=== PATIENT | male | born 1940 | race Caucasian/White ===

== ENCOUNTER 2021-08-24 12:08 | Inpatient (IN) | payer MEDICARE, OTHER, SELFPAY ==
--- NOTE | ~2021-08-24 | CT_ITS ---
EXAMINATION: CT brain wo con INDICATION: Head injury COMPARISON: None TECHNIQUE: Standard unenhanced head CT. The dose-length product (DLP) was 681.00 mGy-cm. The mA was a djusted according to patient size. Iterative reconstruction technique was employed. FINDINGS: There is no acute intraparenchymal hemorrhage. No evidence of mass lesion. No evidence of a cute infarction. There is moderate periventricular and subcortical hypodensity probably related to sm all vessel ischemic disease. There is moderate prominence of the sulci and ventricles related to cere bral atrophy. Intracranial calcified cerebral atherosclerosis is noted. There are no extra-axial levi ections. There is no mass effect or midline shift. Changes in right globe are likely from ocular lens surgery. The visualized sinuses and mastoid air cells are well aerated. IMPRESSION: 1. No acute intracranial abnormality. 2. Age related findings. Reviewed, dictated and finalized at location A.
--- NOTE | ~2021-08-24 | US_ITS ---
EXAMINATION: US renal BI DATE: 08/27/2021 08:07 INDICATION: Gross hematuria. TECHNIQUE: Multiple ultrasound grayscale images of the kidneys were obtained. COMPARISON: None. FINDINGS: The right kidney measures 11.7 x 5.9 x 6.0 cm. The left kidney measures 13.9 x 6.2 x 7.2 cm. The kidn eys demonstrate normal parenchymal echogenicity. There are cysts in the kidneys measuring up to 4.4 c m on the left. There is mild left hydronephrosis. The bladder is normal. The prostate is severely enl arged. IMPRESSION: 1. Mild left hydronephrosis. 2. Severely enlarged prostate. Reviewed, dictated and finalized at location A.
--- NOTE | ~2021-08-24 | XR_ITS ---
EXAMINATION: XR chest 2V DATE: 08/24/2021 13:17 INDICATION: Chest pain after fall TECHNIQUE: AP and lateral views of the chest are obtained. COMPARISON: None available FINDINGS: There is mild atelectasis of the lung bases. There is no pleural effusion or pneumothorax. The cardiomediastinal silhouette is normal. There is mild thoracic spondylosis. IMPRESSION: 1. No acute cardiopulmonary abnormality. Reviewed, dictated and finalized at location A.
[2021-08-24 12:12] VITALS: BP 134/75; PULSE 82; RESP 20; TEMP 36.4; O2SAT 95
--- NOTE | 2021-08-24 12:16 | ECG_ITS ---
Measurements Intervals [place] Rate: 85 P: -53 AZ: 119 QRS: 47 QRSD: 85 T: 61 QT: 334 QTc: 399 Interpretive Statements SINUS RHYTHM WITH SHORT [place] INTERVAL WITH OCCASIONAL VENTRICULAR PREMATURE COMPLEXES POSSIBLE RIGHT VENTRICULAR CONDUCTION DELAY [RSR (QR) IN V1/V2] COMPARED TO ECG 08/24/2021 12:16:46 NO SIGNIFICANT CHANGES Electronically Signed On 08-25-2021 19:17:02 CDT by Lucy Huff M.D.
[2021-08-24 12:38] LABS: Basophils Percent Auto 0.4 % (0.2-1.2); Eosinophils Absolute Auto 0.1 K/mm3 (0-0.3); Eosinophils Percent Auto 0.7 % (0-4.4); Hematocrit 39.6 % (42.0-52.0); Hemoglobin 13.8 g/dL (14.0-18.0); Immature Granulocyte Absolute 0.04 K/mm3 (0.00-0.031); Immature Granulocyte Percent A 0.5 % (0-0.5); Lymphocytes Absolute Auto 2.73 K/mm3 (0.9-3.2); Lymphocytes Percent Auto 35.7 % (18.3-44.2); Mean Corpuscular HGB Conc 34.8 g/dl (32-36); Mean Corpuscular Hemoglobin 31.6 pg (26-34); Mean Corpuscular Volume 90.6 fl (80-100); Mean Platelet Volume 9.9 fl (7.4-10.4); Monocytes Absolute Auto 0.7 K/mm3 (0.1-0.6); Monocytes Percent Auto 8.5 % (2.6-8.5); Neutrophils Absolute Auto 4.1 K/mm3 (1.3-6.7); Neutrophils Percent Auto 54.2 % (45.5-73.1); Platelet Count Result 231 k/mm3 (150-375); Red Blood Count 4.37 M/mm3 (4.6-6.20); White Blood Count 7.6 K/mm3 (4.5-10.0)
[2021-08-24] MEDS: TETANUS,DIPHTHERIA,AC PERTUSSIS ADULT (0.5 ML) BOOSTRIX IM (12:38)
[2021-08-24 12:52] LABS: Anion Gap 3 mmol/L (8-16); Blood Urea Nitrogen 20 mg/dL (9-20); Calcium 8.9 mg/dL (8.4-10.2); Carbon Dioxide 29 mmol/L (22-30); Chloride 107 mmol/L (98-107); Estimated CRCL calculation 62 ml/min; Estimated Glomerular Filt Rate > 60; Glucose 108 mg/dL (65-110); Potassium 3.1 mmol/L (3.4-5.0); Sodium 139 mmol/L (137-145)
--- NOTE | 2021-08-24 13:14 | PC.NURSE ---
Multiple tries to collect urine, pt not able to urinate at this time.
[2021-08-24 13:23] VITALS: RESP 18; O2SAT 98
[2021-08-24 13:50] VITALS: BP 152/80; PULSE 61; RESP 16; O2SAT 95
[2021-08-24 13:50] LABS: Appearance Urine Clear (Clear); Bilirubin Urine 1+ (Negative); Blood Urine Negative (Negative); Color Urine Yellow (Yellow); Glucose Urine UA Negative (Negative); Ketones Urine Negative (Negative); Leukocyte Esterase Ur Negative LEU/UL (Negative); Nitrate Urine Negative (Negative); Protein Urine 1+ mg/dL (Negative); Specific Grav Ur >= 1.030 (1.001-1.035); pH Urine 5.5 (5.0-9.0)
[2021-08-24 13:55] LABS: Mucus Urine Few /lpf; RBC Urine 0-2 /hpf (0-2); Squamous Epithelial Cell Urine Rare /hpf (Few); WBC Urine 0-3 /hpf
[2021-08-24 13:56] LABS: Add Urine Microscopic? YES
--- NOTE | 2021-08-24 14:02 | PC.NURSE ---
This RN received call from pt's neighbor and property maintenance supervisor in [place], Janina Del Rio. She reports she is NOT related to pt and has NO legal authority, and remainder of pt's family is in [place]. This RN did not share info with person, but she reports she will attempt to contact pt's family.
[2021-08-24 14:27] LABS: SARS-CoV-2 RNA PCR Negative
--- NOTE | 2021-08-24 14:27 | PC.NURSE ---
spoke to pt nephew (medical POA) Jean Paul Ng, said he will try get here as soon as he can to pick pt up.
--- NOTE | 2021-08-24 15:12 | ECG_ITS ---
Measurements Intervals [place] Rate: 84 P: 33 AZ: 179 QRS: -25 QRSD: 104 T: 41 QT: 372 QTc: 441 Interpretive Statements SINUS RHYTHM WITH OCCASIONAL SUPRAVENTRICULAR PREMATURE COMPLEXES BORDERLINE LEFT AXIS DEVIATION [QRS AXIS < -20] NONSPECIFIC T-WAVE ABNORMALITY NO PREVIOUS ECG AVAILABLE FOR COMPARISON Electronically Signed On 08-25-2021 19:16:50 CDT by Lucy Huff M.D.
--- NOTE | 2021-08-24 16:12 | PC.NURSE ---
Per ED JANENE Siddiqui, pt's nephew will catch plane from [place], and we can expect him to arrive at [facility] tomorrow (Thursday) 08/25/21. Nephew's reports he is also pt's POA. Contact info as follows: Hernandez Reaves: [phone].
--- NOTE | 2021-08-24 16:30 | PM.IMHP ---
H&P: HPI History of Present Illness Date/Time: 08/24/21 16:30 Chief Complaint: Ground level fall. Narrative: This is an 81-year-old male who presented to the emergency department via EMS for evaluation after a ground level fall. He is a very poor historian and seems to suffer from significant short-term memory loss and as such all of the following history is via a review of his electronic medical record. The patient lives in [place], [place] and he reports passing through the area on his way to [place], [place] where he also has a home. It is my understanding that the police pulled him over last night for driving erratically and he was taken to shelter overnight as he was apparently combative with the officers. He was released this morning and as he was walking out of the building he tripped on a rock and fell onto his right side. EMS was summoned and he was brought to the ER as he was quite confused. Workup in the ER was relatively unremarkable and a laceration on his right holiness was sutured. We were able to get a hold of his nephew Greciay he is going to be coming tomorrow to cotton picking machine operator the patient. He is being admitted overnight for closer monitoring and for evaluation of his altered mental status. At the time my evaluation he is a bit agitated and he wants to know where his truck is so he can get back on the road [place]. He also reports being tired as he has not slept much since he has been driving the last several days, reportedly pulling over now and then to have a brief nap in his truck before motoring on. He has no specific complaints. Review of Systems Review of Systems: Twelve systems were reviewed. He has perhaps some mild discomfort at the side of the laceration near his right holiness. He denies overt headache. No fever, chills, or sweats. He denies recent cold and flu symptoms. No chest pain or shortness of breath. No nausea, vomiting, or diarrhea. He reports being hungry at this time. He is aware that he is confused and tells me that he was just a bit discombobulated from being in a new setting and in shelter overnight. He denies a diagnosis of dementia. Except as documented, all other systems were reviewed and are negative. [facility] Past Medical History Medical History (Updated 08/24/21 @ 23:53 by Yulissa Blackburn PA-C) Medical history unknown Surgical History Surgical History (Updated 08/24/21 @ 16:54 by Yulissa Blackburn PA-C) History of tonsillectomy Family History Family History Other Unknown family medical history Social History Social History (Updated 08/24/21 @ 23:51 by Yulissa Blackburn PA-C) Social History: [id number]: Jean Paul Ng, nephew. Code status: Full code. Smoking status: Former smoker Alcohol intake: never Substance use: never Substance use type: unknown Additional living arrangements comments: The patient lives in [place], [place]. He has 3 children. Additional occupation/education comments: Retired electrician apprentice. Was in the [employer], [employer]. Spiritual care concerns: No Meds Home Medications and Allergies Allergies Allergy/AdvReac Type Severity Reaction Status Date / Time No Known Allergies Allergy Verified 08/24/21 12:26 Vital Signs Vital Signs - 24 hr 08/24/21 12:12 08/24/21 13:23 08/24/21 13:50 Temperature 97.5 F L Pulse Rate 82 61 Respiratory Rate 20 18 16 Blood Pressure 134/75 152/80 H Pulse Oximetry 95 98 95 Oxygen Delivery Room Air Exam Narrative: General: Well developed, well nourished male supine in bed. Weight: 83 kg. HEENT: Wearing a ball cap. There is an abrasion on the right holiness. PERRL, EOMI. Sclerae anicteric. Tacky mucus membranes. Some missing teeth and dental caries. Neck: Supple. No obvious bruits but he talks through the exam. Respiratory: Lungs are clear to auscultation bilaterally. Cardiovascular: Regular rate and rhythm with S1-S2. 2/6 systolic
--- NOTE | 2021-08-24 16:31 | ED.GENADULT ---
HPI - General Adult General Chief complaint: Fall Stated complaint: GLF outside head lac Time Seen by Provider: 08/24/21 12:17 History of Present Illness HPI narrative: Patient is an 81-year-old male who presents the ER after a fall in [facility]. He apparently tripped over a curb. It was witnessed by onlookers. No loss of consciousness. Patient has a small laceration lateral to the right eyebrow. Unfortunately the story deepens and it apparently patient has been on the road for 2 to 3 days. He is originally from [facility]. He apparently was pulled over for swerving and then was arrested for resisting arrest. Patient stayed the night in [facility] longterm. He was then released this morning and his car was impounded. Patient is only alert to self. He has no idea what state or city he is currently in. He has no concept of the date. He reports he is on his way to [place]. We are able to get phone numbers of a delivery technician from his home up in [place]. Additionally we were able to talk to his nephew who is his POA, he did not know he was gone. Patient has no other complaints at this time. Related Data Allergies Allergy/AdvReac Type Severity Reaction Status Date / Time No Known Allergies Allergy Verified 08/24/21 12:26 Review of Systems Review of Systems: ROS unobtainable: Yes unobtainable due to mental status PMFSH Past Medical History Medical History (Updated 08/24/21 @ 17:47 by Omega Hall MD) Healthy adult male Surgical History Surgical History (Updated 08/24/21 @ 16:54 by Yulissa Blackburn PA-C) History of tonsillectomy Social History Social History (Updated 08/24/21 @ 17:47 by Omega Hall MD) Smoking status: Never smoker Exam Narrative: GENERAL: Well-appearing, well-nourished, and in no acute distress. HEAD: Normocephalic, 1.5 cm V-shaped laceration lateral to the right eyebrow. EYES: PERRL and EOMI. ENT: Mucous membranes moist. CHEST: Clear to auscultation. No respiratory distress. HEART: Regular rate and rhythm. Normal peripheral pulses. ABDOMEN: Soft, nontender, nondistended. EXTREMITIES: Normal range of motion. No edema. SKIN: Warm, dry, no rash. NEURO: No focal deficits. Alert and oriented x1. PSYCH: Normal mood and affect. Course Course Emergency Course: Will admit to the hospitalist service so family can come get the patient. Vital Signs Vital signs: Vital Signs Temperature 97.5 F L 08/24/21 12:12 Pulse Rate 82 08/24/21 12:12 Respiratory Rate 20 08/24/21 12:12 Blood Pressure 134/75 08/24/21 12:12 Pulse Oximetry 95 08/24/21 12:12 Oxygen Delivery Room Air 08/24/21 12:12 Temperature 97.5 F L 08/24/21 12:12 Pulse Rate 61 08/24/21 13:50 Respiratory Rate 16 08/24/21 13:50 Blood Pressure 152/80 H 08/24/21 13:50 Pulse Oximetry 95 08/24/21 13:50 Oxygen Delivery Room Air 08/24/21 12:12 Procedures Laceration Laceration 1: Date: 08/24/21 Time: 17:20 Site: face Side (If applicable): right Size (cm): 1.5 Description: flap Depth: simple, single layer Local Anesthetic: lidocaine 1% and with epi Amount of anesthesia used (mL): 1 Pre-repair: irrigated ====== Skin Level ====== Skin layer closed with: nylon Size (cm): 5-0 Number of sutures: 3 Technique: simple, interrupted ====== Subcutaneous Layer ====== ====== Muscle Layer ====== ====== Tendon Layer ====== Medical Decision Making Vital Signs Vital Signs: Vital Signs Temperature 97.5 F L 08/24/21 12:12 Pulse Rate 82 08/24/21 12:12 Respiratory Rate 20 08/24/21 12:12 Blood Pressure 134/75 08/24/21 12:12 Pulse Oximetry 95 08/24/21 12:12 Oxygen Delivery Room Air 08/24/21 12:12 Temperature 97.5 F L 08/24/21 12:12 Pulse Rate 61 08/24/21 13:50 Respiratory Rate 16 08/24/21 13:50 Blood Pressure 152/80 H 08/24/21 13
[2021-08-24] MEDS: LORazepam INJ (*CRX) 2 MG/ML VIAL 1 MG IV PUSH (17:10)
--- NOTE | 2021-08-24 17:42 | PC.NURSE ---
BROOKSAR faxed to floor @ [phone] by this RN.
--- NOTE | 2021-08-24 18:16 | PC.NURSE ---
Admission Note: The patient,Andrzej Esteves,81 y/o, was given written information regarding hospital policies, unit procedures and contact persons.
[2021-08-24 18:30] VITALS: BP 163/78; PULSE 88; RESP 16; TEMP 36.9; O2SAT 98
[2021-08-24] MEDS: WATER, STERILE FOR INJECTION 10 ML VIAL XX (19:53)
[2021-08-24] MEDS: OLANZapine 10 MG INJ VIAL 5 MG IM (19:53)
[2021-08-24 19:55] VITALS: BMI 27.2
[2021-08-24 20:05] VITALS: BP 143/66; PULSE 76; RESP 18; TEMP 37.2; O2SAT 96
[2021-08-24] MEDS: POTASSIUM CHLORIDE 20 MEQ TABLET PO (21:53)
[2021-08-24 22:21] VITALS: O2SAT 95
[2021-08-25] MEDS: HALOPERIDOL LACTATE 5 MG/ML VIAL IM (01:02)
[2021-08-25] MEDS: LORazepam INJ (*CRX) 2 MG/ML VIAL 1 MG IM (01:03)
[2021-08-25 01:19] LABS: Barbiturate Screen Urine Negative (Negative); Benzodiazepines Screen Urine Negative (Negative)
[2021-08-25 01:21] LABS: Amphetamine Screen Urine Negative (Negative); Cannabinoid Screen Urine Negative (Negative); Cocaine Screen Urine Negative (Negative); Methadone Screen Urine Negative (Negative); Opiate Screen Urine Negative (Negative); Phencyclidine Screen Urine Negative (Negative)
[2021-08-25 09:45] VITALS: RESP 18; O2SAT 95
--- NOTE | 2021-08-25 09:45 | PM.DS ---
DS: Admitting Diagnosis Discharge Date 08/25/2021 Admitting Diagnosis ground level fall requiring sutures altered mental status, dementia DS: Discharge Diagnosis Discharge Diagnosis (1) Fall from ground level: Code(s): W18.30XA - Fall on same level, unspecified, initial encounter Status: Acute Assessment and Plan: Patient sustained a ground level fall, reportedly tripping on a rock. Brain CT was unremarkable. Initiate fall precautions. PT/OT consulted. (2) Laceration of scientology: Code(s): S01.81XA - Laceration without foreign body of other part of head, initial encounter Status: Acute Assessment and Plan: Sutured in the emergency department. Local wound care. (3) Confusion: Code(s): R41.0 - Disorientation, unspecified Status: Acute Assessment and Plan: I suspect this is not new but may be worse due to long distance travel and lack of sleep. No evidence to suggest infection on labs. Initiate fall precautions. Neurologic checks q.4 hours. Devonte Reaves (ANNALEE) is on his way to get the patient. (4) Hypokalemia: Code(s): E87.6 - Hypokalemia Status: Acute Assessment and Plan: Potassium will be replaced and monitored. DS: Summary Hospital Course Reason for hospitalization: Acute mental status changes laceration to head Hospital Course: patient is an 81-year-old male with past medical history that is unknown due to the patient's uncooperative state. however in the emergency department the patient was brought via ambulance for evaluation after ground level fall after being released from the [facility] where he stayed overnight as apparently he became combative with officers after being pulled over. Patient is a very poor historian and appears to have some short-term memory loss. According to records the patient lives in [place], [place] and he reports passing through the area on his way to [place], [place] where he also has a home.?He was released this morning and as he was walking out of the building he tripped on a rock and fell onto his right side. EMS was summoned and he was brought to the ER as he was quite confused. Workup in the ER was relatively unremarkable and a laceration on his right scientology was sutured. We were able to get a hold of his nephew Erik he is going to be coming tomorrow to pickling operator the patient. He is being admitted overnight for closer monitoring and for evaluation of his altered mental status. At the time my evaluation he is a bit agitated and he wants to know where his truck is so he can get back on the road [place]. He also reports being tired as he has not slept much since he has been driving the last several days, reportedly pulling over now and then to have a brief nap in his truck before motoring on. He has no specific complaints. no acute findings during this hospitalization. Patient will be discharged with family and his power of corporate associate attorney. Status at Discharge Cognitive/behavioral status at discharge: alert to self Functional status at discharge: uses cane/walker Time Spent with Patient Time attestation: Total time spent providing and/or coordinating discharge services: Time spent: Less than 30 minutes Exam Narrative: General: Well developed, well nourished male supine in bed. Weight: 83 kg. HEENT: Wearing a ball cap. There is an abrasion on the right scientology. PERRL, EOMI. Sclerae anicteric. Tacky mucus membranes. Some missing teeth and dental caries. Neck: Supple. No obvious bruits but he talks through the exam. Respiratory: Lungs are clear to auscultation bilaterally. Cardiovascular: Regular rate and rhythm with S1-S2. 2/6 systolic murmur at the upper sternal border. Gastrointestinal: Abdomen is soft, nontender, and nondistended with positive bowel sounds. Skin: Warm and dry. Skin tear dorsum left hand. Abrasion/laceration right scientology. Extremities: No cyanosis or clubbing. Bilateral per
--- NOTE | 2021-08-25 12:25 | PC.NURSE ---
Call from pt's ANNALEE Reaves from [place], he states he has a flight to come to [facility] to pick up driver pt, he and his step father are coming to pick pt up and take him back to [place], I asked him if he has been in contact with the police concerning location of pt's vehicle, he states he has contacted the [facility] police and has name and number of impound lot and will be able to contact them Thursday08/26/2021 a.m His flight is late Thursday and will not be able to pick up driver pt until Thursday, he has been in contact with Sarah at [facility] in the [facility] ph/ [phone] and has a meeting with her today to have pt placed there when they return, I reviewed with him pt's condition at this time
[2021-08-25 13:06] LABS: Hematocrit 39.7 % (42.0-52.0); Hemoglobin 13.7 g/dL (14.0-18.0); Mean Corpuscular HGB Conc 34.5 g/dl (32-36); Mean Corpuscular Hemoglobin 31.8 pg (26-34); Mean Corpuscular Volume 92.1 fl (80-100); Mean Platelet Volume 9.9 fl (7.4-10.4); Platelet Count Result 204 k/mm3 (150-375); Red Blood Count 4.31 M/mm3 (4.6-6.20); Red Cell Distribution Width 12.9 % (11.5-14.5)
[2021-08-25 13:23] LABS: Ammonia < 9 umol/L (9-30)
[2021-08-25 13:24] LABS: Alanine Aminotransferase 21 U/L (6-50); Albumin Level 3.5 g/dL (3.5-5.1); Alkaline Phosphatase 76 U/L (38-126); Anion Gap 2 mmol/L (8-16); Aspartate Amino Transferase 33 U/L (17-59); Bilirubin,Total 1.5 mg/dL (0.2-1.3); Blood Urea Nitrogen 13 mg/dL (9-20); Calcium 8.4 mg/dL (8.4-10.2); Carbon Dioxide 29 mmol/L (22-30); Chloride 109 mmol/L (98-107); Estimated CRCL calculation 62 ml/min; Estimated Glomerular Filt Rate > 60; Glucose 102 mg/dL (65-110); Magnesium 2.1 mg/dL (1.6-2.3); Potassium 3.1 mmol/L (3.4-5.0); Sodium 140 mmol/L (137-145)
[2021-08-25 14:00] VITALS: BP 140/72; PULSE 63; RESP 16; TEMP 36.6; O2SAT 98
--- NOTE | 2021-08-25 14:47 | PCCCNOTE ---
On 08/25/21, the student, [Suly Nath], provided care and completed [facility] documentation on this patient. I have reviewed the student's documentation and agree with the findings.
[2021-08-25 20:30] VITALS: BP 166/94; PULSE 96; RESP 20; TEMP 36.8; O2SAT 98
[2021-08-25] MEDS: ACETAMINOPHEN 325 MG TABLET 650 MG PO (20:31)
[2021-08-26 05:57] VITALS: BP 128/69; PULSE 60; RESP 16; TEMP 37.1; O2SAT 95
--- NOTE | 2021-08-26 08:26 | PCPTNOTE ---
Attempted to see patient for PT this A.M., per RN not to see patient right now due to patient sleeping at this time.
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
--- NOTE | 2021-08-26 12:46 | PC.NURSE ---
Pt continues to get out of chair and tugging on garcia cath. Garcia cath changed out due to not draining and bright red clots noted and unable to pass through cath tubing. Marina Solares FINANCIAL SUPERVISOR notified.
[2021-08-26 14:00] VITALS: BP 153/69; PULSE 85; RESP 16; TEMP 37.2; O2SAT 98
--- NOTE | 2021-08-26 15:11 | PC.NURSE ---
Marina oSlares BURR MILL OPERATOR notified of pt trying to pull cbi out and unhooking it while saline is spraying everywhere. Sitter at bedside and pt is still not cooperative.
[2021-08-26] MEDS: TAMSULOSIN HCL 0.4 MG CAPSULE PO (15:14)
[2021-08-26] MEDS: FINASTERIDE 5 MG TABLET PO (15:14)
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
--- NOTE | 2021-08-26 15:36 | PC.NURSE ---
Pt up in room walking around trying to put on clothese and says he is leaving. Pt has envelope with petty and credit cards. Encouraged pt let me count money and put in safe, pt refused
[2021-08-26] MEDS: OLANZapine 2.5 MG TABLET PO (15:40)
[2021-08-26 20:00] VITALS: BP 153/69; PULSE 85; RESP 16; TEMP 37.2; O2SAT 98
[2021-08-26 22:00] VITALS: BP 182/76; PULSE 91; RESP 18; TEMP 36.7; O2SAT 95
[2021-08-27 06:00] VITALS: BP 148/67; PULSE 69; RESP 16; TEMP 36.5; O2SAT 98
--- NOTE | 2021-08-27 08:47 | WPDUROPN2 ---
Progress Note: A&P Assessment and Plan (1) Retention of urine: Code(s): R33.9 - Retention of urine, unspecified Status: Acute Assessment and Plan: Patient continued to pull Moraes out. Nurse states patient has been voiding frequently. Will check bladder scan for residual. In addition will obtain renal ultrasound to evaluate upper tracts and see if any clots in the bladder. (2) Gross hematuria: Code(s): R31.0 - Gross hematuria Status: Acute Assessment and Plan: Urine is cleared per nurse. Will see what ultrasound shows. If no clot seen may hold off on cystoscopy at this time Subjective Subjective Date/Time Seen: 08/27/21 08:47 Principal diagnosis: Urinary retention and hematuria Interval history: Patient is resting comfortably at this time. Patient has dementia. Nurse states that he has been voiding frequently in his urine has cleared Review of Systems Review of Systems: All systems reviewed & are unremarkable except as noted in HPI and below Exam Const: General: comfortable ( sleeping at this time) Objective Data Vital Signs Vital Signs: Vital Signs - 24 hr 08/26/21 14:00 08/26/21 20:00 08/26/21 20:00 Temperature 37.2 C 37.2 C Pulse Rate 85 85 85 Respiratory Rate 16 16 16 Blood Pressure 153/69 H 153/69 H Pulse Oximetry 98 98 98 Oxygen Delivery Room Air 08/26/21 22:00 08/27/21 06:00 Temperature 36.7 C 36.5 C Pulse Rate 91 69 Respiratory Rate 18 16 Blood Pressure 182/76 H 148/67 H Pulse Oximetry 95 98 Oxygen Delivery Intake/Output Intake/Output: Intake & Output 08/24/21 08/25/21 08/26/21 08/27/21 23:59 23:59 23:59 23:59 Intake Total 150 1714 300 Output Total 1600 725 Balance -1450 989 300 Meds/Results Medications: Active Medications Generic Name Dose Route Start Last Admin Trade Name Freq PRN Reason Stop Dose Admin Acetaminophen 650 mg 08/24/21 16:36 08/25/21 20:31 Acetaminophen 325 Mg Tablet PO 650 mg Q4H PRN Administration Mild Pain (1-3) or Fever Finasteride 5 mg 08/26/21 14:45 08/26/21 15:14 Finasteride 5 Mg Tablet PO 5 mg QAM EDUARDO Administration Ondansetron HCl 4 mg 08/24/21 16:36 Ondansetron Inj 4 Mg/2 Ml Vial IV PUSH Q4H PRN Nausea Tamsulosin HCl 0.4 mg 08/26/21 14:45 08/26/21 15:14 Tamsulosin Hcl 0.4 Mg Capsule PO 0.4 mg QAM EDUARDO Administration Radiology Results: ITS Impressions Head CT 08/24/21 13:15 IMPRESSION: 1. No acute intracranial abnormality. 2. Age related findings. Chest X-Ray 08/24/21 13:26 IMPRESSION: 1. No acute cardiopulmonary abnormality. Quality VTE Prophylaxis VTE prophylaxis: mechanical ordered
[2021-08-27] MEDS: FINASTERIDE 5 MG TABLET PO (09:07)
[2021-08-27] MEDS: TAMSULOSIN HCL 0.4 MG CAPSULE PO (09:07)
--- NOTE | 2021-08-27 09:21 | PM.IMPN ---
Progress Note: A&P Assessment and Plan (1) Fall from ground level: Code(s): W18.30XA - Fall on same level, unspecified, initial encounter Status: Acute Assessment and Plan: Patient sustained a ground level fall, reportedly tripping on a rock. Brain CT was unremarkable. Initiate fall precautions. PT/OT consulted. (2) Laceration of tenriism: Code(s): S01.81XA - Laceration without foreign body of other part of head, initial encounter Status: Acute Assessment and Plan: Sutured in the emergency department. Local wound care. (3) Confusion: Code(s): R41.0 - Disorientation, unspecified Status: Acute Assessment and Plan: I suspect this is not new but may be worse due to long distance travel and lack of sleep. No evidence to suggest infection on labs. Initiate fall precautions. Neurologic checks q.4 hours. Devonte Jean Paul (ANNALEE) is on his way to get the patient. (4) Hypokalemia: Code(s): E87.6 - Hypokalemia Status: Acute Assessment and Plan: Potassium will be replaced and monitored. (5) Retention of urine: Code(s): R33.9 - Retention of urine, unspecified Status: Acute Assessment and Plan: Moraes catheter was placed due to urinary retention. Patient manipulated and pulled on the Moraes catheter causing gross hematuria. Urology was consulted. Suggested placing a CBI until clear. However the patient pulled out the CBI and unhooked it multiple times allowing fluid to drain on the floor. Urology suggested bladder scan the patient every 6 hours and if greater than 350 straight cath the patient. Patient currently has been able to void independently. Flomax and finasteride has been started (6) BPH (benign prostatic hyperplasia): Code(s): N40.0 - Benign prostatic hyperplasia without lower urinary tract symptoms Status: Acute Assessment and Plan: Flomax and finasteride has been started (7) Gross hematuria: Code(s): R31.0 - Gross hematuria Status: Acute Assessment and Plan: Resolved Subjective Date/time seen: 08/27/21 09:21 Interval history: Patient is alert this morning. Patient is easily arousable. He apparently does contain curves with the nursing staff. Pending family brain picker on Thursday. Review of Systems Review of Systems: All systems reviewed & are unremarkable except as noted in HPI and below Exam Narrative: General: Well developed, well nourished male supine in bed. Weight: 83 kg. HEENT: Wearing a ball cap. There is an abrasion on the right tenriism. PERRL, EOMI. Sclerae anicteric. Tacky mucus membranes. Some missing teeth and dental caries. Neck: Supple. No obvious bruits but he talks through the exam. Respiratory: Lungs are clear to auscultation bilaterally. Cardiovascular: Regular rate and rhythm with S1-S2. 2/6 systolic murmur at the upper sternal border. Gastrointestinal: Abdomen is soft, nontender, and nondistended with positive bowel sounds. Skin: Warm and dry. Skin tear dorsum left hand. Abrasion/laceration right tenriism. Extremities: No cyanosis or clubbing. Bilateral periankle edema. Negative Bart sign. Radial and pedal pulses intact. Neurological: Alert to name, date of , and age. He cannot tell me the current year or the name of the president. He remembers falling this morning but does not remember the ambulance ride. He continues to forget that he is in the hospital. Cranial nerves 2-12 are grossly intact. Speech is clear. No facial asymmetry. Hand finance attorney equal bilaterally. He does not participate in the rest of the neurologic exam. No gross focal deficits to casual conversation. Psychiatric: Mostly cooperative. Confused and repetitive. Objective Data Vital Signs Vital Signs: Vital Signs - 24 hr 08/26/21 14:00 08/26/21 20:00 08/26/21 20:00 Temperature 98.9 F 98.9 F Pulse Rate 85 85 85 Respiratory Rate 16 16 16 Blood Pressure 153/69 H 153/69 H Puls
[2021-08-27 14:18] VITALS: BP 154/81; PULSE 72; RESP 16; TEMP 36.6; O2SAT 97
[2021-08-27 19:36] VITALS: BP 144/68; PULSE 74; RESP 17; TEMP 36.2; O2SAT 99
[2021-08-27 20:25] VITALS: PULSE 74; RESP 17; O2SAT 98
[2021-08-27 21:25] VITALS: O2SAT 98
[2021-08-27] MEDS: QUEtiapine FUMARATE 25 MG TABLET PO (23:06)
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
[2021-08-28 04:36] VITALS: BP 123/49; PULSE 88; RESP 17; TEMP 37.1; O2SAT 100
--- NOTE | 2021-08-28 08:23 | PM.DS ---
DS: Discharge Diagnosis Discharge Diagnosis (1) Fall from ground level: Code(s): W18.30XA - Fall on same level, unspecified, initial encounter Status: Acute (2) Laceration of rastafarian: Code(s): S01.81XA - Laceration without foreign body of other part of head, initial encounter Status: Acute (3) Confusion: Code(s): R41.0 - Disorientation, unspecified Status: Acute (4) Hypokalemia: Code(s): E87.6 - Hypokalemia Status: Acute (5) Retention of urine: Code(s): R33.9 - Retention of urine, unspecified Status: Acute (6) BPH (benign prostatic hyperplasia): Code(s): N40.0 - Benign prostatic hyperplasia without lower urinary tract symptoms Status: Acute Discharge Plan Discharge Consulting providers: Joshua Thompson Anticipated Discharge Date/Time: 08/25/21 09:43 Patient Disposition: Home, Self-Care Activity: as tolerated Diet: as tolerated Patient Instructions: Antibiotic Form Stand Alone Forms: General Discharge Information Follow-up/Referrals: UNKNOWN,DOCTOR [Primary Care Provider] - 2 Weeks Discharge Medications: New tamsulosin 0.4 mg Capsule 0.4 mg PO QAM 30 Days Qty: 30 0RF finasteride [Proscar] 5 mg Tablet 5 mg PO QAM 30 Days Qty: 30 0RF Date of admission: 08/27/21 09:24 Primary Care Provider: UNKNOWN,DOCTOR Admitting Provider: Payal Thomas Attending physician on admission: Tamra Carrasco Condition: Stable Quality VTE Prophylaxis VTE prophylaxis: mechanical ordered
[2021-08-28 08:50] LABS: Hemoglobin 11.6 g/dL (14.0-18.0); Mean Corpuscular HGB Conc 34.1 g/dl (32-36); Mean Corpuscular Volume 93.7 fl (80-100); Mean Platelet Volume 9.7 fl (7.4-10.4); Platelet Count Result 176 k/mm3 (150-375); Red Blood Count 3.63 M/mm3 (4.6-6.20); White Blood Count 6.6 K/mm3 (4.5-10.0)
[2021-08-28 09:17] LABS: Alanine Aminotransferase 15 U/L (6-50); Albumin Level 3.2 g/dL (3.5-5.1); Alkaline Phosphatase 55 U/L (38-126); Anion Gap 3 mmol/L (8-16); Aspartate Amino Transferase 22 U/L (17-59); Bilirubin,Total 0.9 mg/dL (0.2-1.3); Blood Urea Nitrogen 10 mg/dL (9-20); Calcium 7.8 mg/dL (8.4-10.2); Carbon Dioxide 28 mmol/L (22-30); Chloride 109 mmol/L (98-107); Estimated CRCL calculation 62 ml/min; Estimated Glomerular Filt Rate > 60; Glucose 98 mg/dL (65-110); Potassium 3.1 mmol/L (3.4-5.0); Sodium 140 mmol/L (137-145)
[2021-08-28] MEDS: FINASTERIDE 5 MG TABLET PO (09:48)
[2021-08-28] MEDS: TAMSULOSIN HCL 0.4 MG CAPSULE PO (09:48)
== END 2021-08-28 13:15 | disposition home or self-care (01) | DRG 948 ==
LOC: ANHED 16:54 → ANH2MED 17:34
PROVIDERS: Physician Assistant; Admitting Provider Hospitalist; Emergency Provider Emergency Medicine; Visit Provider Student in an Organized Health Care Education/Training Program
DX: R41.0 Disorientation, unspecified (principal); S37.30XA Unspecified injury of urethra, initial encounter; R41.3 Other amnesia; S01.81XA Laceration without foreign body of other part of head, initial encounter; W01.0XXA Fall on same level from slipping, tripping and stumbling without subsequent striking against object, initial encounter; Z87.891 Personal history of nicotine dependence; E87.6 Hypokalemia; T42.75XA Adverse effect of unspecified antiepileptic and sedative-hypnotic drugs, initial encounter; Y92.238 Other place in hospital as the place of occurrence of the external cause; R33.0 Drug induced retention of urine; R31.0 Gross hematuria; N40.0 Benign prostatic hyperplasia without lower urinary tract symptoms; Y92.230 Patient room in hospital as the place of occurrence of the external cause; Y84.6 Urinary catheterization as the cause of abnormal reaction of the patient, or of later complication, without mention of misadventure at the time of the procedure; Z20.822 Contact with and (suspected) exposure to COVID-19
CPT/HCPCS: 12011; 36415; 70450; 71046; 76775; 80048; 80053; 80307; 81001; 82140; 82607; 83735; 84443; 85025; 85027; 90471; 90715; 93005; 96372; 96374; 97110; 97161; 97165; 97530; 97535; 99285; A9270; C9803; G0378; J1630; J2060; U0003; U0005